=== PATIENT | male | born 1930 | race Caucasian/White ===

== ENCOUNTER → 2016-09-18 | Outpatient (CLI) | payer MEDICARE ==
[~2016-09-18] MED LIST: ALBUTEROL2.5 MG/3 M INH; ASPIR 8181 MG PO; BUSPAR 5MG TABLE5 MG PO; CARDIZEM CD180 MG PO; COLACE 100MG C100 MG PO; COZAAR25 MG PO; DULERA 200 MCG8.8 GM INH; FERROUS SULFAT325 M2 PO; FISH OIL 1,2001 EACH PO; FLONASE 0.05% N16 GM; FUROSEMIDE20 MG PO; LASIX20 MG PO; LEVAQUIN500 MG PO; LOVENOX SY30 MG/0.3 SQ; MIRALAX17 GM PO; MULTIVITAMINS1 EAC1 PO; NEXIUM40 MG PO; NORCO 5-325 TA1 EACH PO; PATADAY2.5 ML OU; PAXIL10 MG PO; PLAVIX 75 MG TA75 MG PO; PRO AIR INH; RIVASTIGMINE1.5 MG PO; SINGULAIR10 MG PO; TRENTAL 400 MG400 MG PO; TYLENOL 500 MG500 MG PO; VESICARE5 MG PO; VITAMIN B12 PO; VITAMIN D31000 UNI1 PO; ZOCOR10 MG PO
== END ==
LOC: KOH-I 16:31
DX: R05 Cough (principal)
CPT/HCPCS: 71020